=== PATIENT | female | born 2000 | race Caucasian/White ===

== ENCOUNTER 2022-06-13 22:31 | Emergency (ER) | payer BC, SELFPAY ==
[2022-06-13 22:32] VITALS: BP 136/81; PULSE 81; RESP 32; TEMP 36.6; O2SAT 100; BMI 22.9
--- NOTE | 2022-06-13 22:46 | EKG12_ITS ---
Test Reason : CP Blood Pressure : / mmHG Vent. Rate : 075 BPM Atrial Rate : 075 BPM P-R Int : 118 ms QRS Dur : 078 ms QT Int : 364 ms P-R-T Axes : 026 001 058 degrees QTc Int : 406 ms Normal sinus rhythm with sinus arrhythmia Minimal voltage criteria for LVH, may be normal variant ( R in aVL ) Borderline ECG Confirmed by DEBORAH ANDERSON, REA ([id number]), assignment editor OBINNA DIEHL ([id number]) on 06/15/2022 1:34:17 PM Referred By: PENNIE/NAKUL Confirmed By:REA CABRERA MD
[2022-06-13] MEDS: Mag Hydrox/Al Hydrox/Simeth 30 ML UDC PO (23:02)
[2022-06-13] MEDS: Ondansetron 4 MG/2 ML Vial IV (23:02)
[2022-06-13] MEDS: Ketorolac 30 MG/ML Syringe IV (23:05)
[2022-06-13] MEDS: 0.9% Normal Saline 1,000 ML 150 ML IV (23:06)
--- NOTE | 2022-06-13 23:11 | ED.VIS.CHEST ---
HPI History of Present Illness Chief Complaint: Chest Pain Informant: patient Narrative Narrative: Patient presents secondary to chest pain. She reports having intermittent episodes of this chest pain for quite some time. Roommate states this episodes been going on for about a week but got significantly worse about an hour and a half ago. She complains of sharp stabbing pain in the left upper chest. She has nausea. 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 They were in town for a local tennis match and presents here for evaluation. She states when she was in [place] most recently they told her she had a torn intercostal muscle that was irritating a nerve and this was the cause of her pain. They had recommended she have a nerve block. She has not been seen to have this performed. [facility] Medical History GERD (gastroesophageal reflux disease) Intercostal muscle tear Home Medications amitriptyline 10 mg tablet 20 mg PO QHS 06/13/22 [History Last Taken Unknown] ferrous sulfate 142 mg (45 mg iron) tablet,extended release (Slow Fe) 100 mg PO QHS 06/13/22 [History Last Taken Unknown] hydrocodone-acetaminophen 5-325mg 5mg-325mg 1 tab PO DAILY PRN Pain 06/13/22 [History Last Taken Unknown] mefenamic acid 250 mg capsule 500 mg PO TID PRN Menstrual Pain 06/13/22 [History Last Taken Unknown] metoclopramide HCl 10 mg tablet 10 mg PO Q6H PRN Nausea 06/13/22 [History Last Taken Unknown] rabeprazole 10 mg capsule,delayed release sprinkle 20 mg PO QHS 06/13/22 [History Last Taken Unknown] simethicone 180 mg capsule 360 mg PO DAILY 06/13/22 [History Last Taken Unknown] sucralfate 1 gram tablet 1 g PO TID 06/13/22 [History Last Taken Unknown] tapentadol 50 mg tablet 25 - 50 mg PO DAILY PRN Pain 06/13/22 [History Last Taken Unknown] tranexamic acid 500 mg tablet 1,000 mg PO 4X/DAY 06/13/22 [History Last Taken Unknown] Allergy/AdvReac Type Severity Reaction Status Date / Time No Known Allergies Allergy Verified 06/13/22 22:36 Social History Smoking Status: Never smoker ROS ROS ED Constitutional Constitutional ED: Denies chills or fever(s) Eyes Eyes: Denies change in vision or discharge from eye(s) ENT ENT ED: Denies discharge from eye(s), rhinorrhea or sore throat Cardiovascular Cardiovascular: Reports chest pain; Denies palpitations Respiratory/Chest Respiratory/Chest: Denies cough or dyspnea Gastrointestinal Gastrointestinal: Reports nausea; Denies abdominal pain, diarrhea or vomiting Genitourinary Genitourinary ED: Denies dysuria Musculoskeletal Musculoskeletal: Denies back pain or extremity pain Integumentary Denies Abrasions or rash Neurologic Neurologic: Denies headache(s) or weakness Psychiatric Psychiatric: Reports anxiety; Denies depression Allergic/Immunologic Allergic/Immunologic ED: Denies lip swelling or urticaria EXAM Physical Exam Const Vital Signs: 06/13/22 22:32 Temperature 98 F Temperature Source Temporal Pulse Rate 81 Respiratory Rate 32 H Blood Pressure 136/81 H Blood Pressure Mean 99 Pulse Ox 100 Oxygen Delivery Method Room Air Positive well nourished and well developed General Appearance ED: well developed HEENT Reports normocephalic and head/scalp atraumatic Eyes PERRL and EOMs intact bilaterally Neck supple Chest Wall inspection of chest normal and palpation of chest normal Resp normal respiratory effort and clear to auscultation bilaterally Cardio regular rate and regular rhythm GI soft to palpation Palpation: soft Extremity normal to inspection Neuro oriented x3 and no sensory deficits noted Sensorium / Orientation: alert Motor Exam: strength 5/5 throughout Psych Mood & Affect: anxious Skin no rashes or lesions noted Heart Score History: Slightly/Non-Suspicious ECG: Normal Age: </= 45 years Risk Factors: No Risk Factors Troponin: </= Normal Limit Score: 0 MDM MDM MDM Narrative Medical decision making narrative: Patient was given Toradol and Zofran for pain and nausea along with a dose of Protonix. GI cocktail was given. 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 EKG obtained to evaluate for cardiac ischemia or dysrhythmia. Chest x-ray obtained to evaluate cardiac silhouette and lung pathology. Lab work obtained to evaluate for electrolyte derangement, troponin value for cardiac ischemia, D-dimer to evaluate for pulmonary embolism. Lab Data Attestation: I reviewed the patient's lab results. Labs: Laboratory Results - last 24 hr 06/13/22 06/13/22 06/13/22 23:00 23:00 23:00 WBC 10.4 RBC 4.31 Hgb 13.2 Hct 40.3 MCV 93.5 MCH 30.6 MCHC 32.8 RDW Std Deviation 45.2 H RDW Coeff of Kirk 13.2 Plt Count 278 MPV 11.0 Immature Gran % (Auto) 0.300 Neut % (Auto) 58.8 Lymph % (Auto) 33.2 [place] % (Auto) 5.8 Eos % (Auto) 1.4 Baso % (Auto) 0.5 Absolute Neuts (auto) 6.1 Absolute Lymphs (auto) 3.44 Nucleated RBC % 0 D-Dimer Quant (PE/DVT) < 0.27 L Sodium 142 Potassium 3.7 Chloride 108 H Carbon Dioxide 26.0 Anion Gap 8 BUN 14 Creatinine 0.67 Estim Creat Clear Calc 125.39 Est GFR (MDRD) Af Amer 144 Est GFR (MDRD) Non-Af 119 BUN/Creatinine Ratio 20.9 H Glucose 97 Calcium 9.7 Troponin I High Sens 4 Serum , Qual 06/13/22 23:00 WBC RBC Hgb Hct MCV MCH MCHC RDW Std Deviation RDW Coeff of Kirk Plt Count MPV Immature Gran % (Auto) Neut % (Auto) Lymph % (Auto) [place] % (Auto) Eos % (Auto) Baso % (Auto) Absolute Neuts (auto) Absolute Lymphs (auto) Nucleated RBC % D-Dimer Quant (PE/DVT) Sodium Potassium Chloride Carbon Dioxide Anion Gap BUN Creatinine Estim Creat Clear Calc Est GFR (MDRD) Af Amer Est GFR (MDRD) Non-Af BUN/Creatinine Ratio Glucose Calcium Troponin I High Sens Serum , Qual NEGATIVE Radiography Chest X-Ray - ED: 1 View, Read by ED Physician, Normal, Heart, Lungs and Mediastinum EKG Initial EKG: Attestation: I personally reviewed and interpreted this EKG as follows: Interpretation: Sinus Rhythm (Sinus at 75 with no acute ischemia.) Treatment and Re-Evaluation Narrative: Repeat evaluation patient is resting comfortably and smiling. She states she feels significantly improved. EKG reveals no acute ischemia. Chest x-ray per my interpretation reveals no acute findings with normal cardiac silhouette and lungs. Lab work reveals no evidence of leukocytosis or anemia. Electrolytes are unremarkable. Troponin and D-dimer are both normal. At this time patient will be discharged. She has been worked up for this multiple times in the past and has home medications to take. Return instructions given. Discharge Plan Triage Chief Complaint: Chest Pain ED Provider: Marie Lanier Dx/Rx/DC Orders Clinical Impression: Atypical chest pain Instructions: ED Chest Pain, Noncardiac Prescriptions: No Action simethicone 180 mg Capsule 360 mg PO DAILY hydrocodone-acetaminophen [[place]] 5-325 mg Tablet 1 tab PO DAILY PRN (Reason: Pain) sucralfate 1 gram tablet 1 g PO TID Label Comments: TAKE 1 TABLET BY MOUTH THREE TIMES DAILY mefenamic acid 250 mg Capsule 500 mg PO TID PRN (Reason: Menstrual Pain) Rx Instructions: FOR THE FIRST FEW DAYS F CYCLE amitriptyline 10 mg Tablet 20 mg PO QHS metoclopramide HCl 10 mg Tablet 10 mg PO Q6H PRN (Reason: Nausea) tranexamic acid 500 mg Tablet 1,000 mg PO 4X/DAY Rx Instructions: AT START OF MENSTRUAL CYCLE Slow Fe 142 mg (45 mg iron) Tablet Extended Release 100 mg PO QHS tapentadol 50 mg Tablet 25 - 50 mg PO DAILY PRN (Reason: Pain) rabeprazole 10 mg Capsule, Delayed Rel Sprinkle 20 mg PO QHS Primary Care Provider: Care Physician,No Primary Referrals: NOT,DEFINED [Non-Staff] - Disposition Disposition: Home, Self Care
--- NOTE | 2022-06-13 23:20 | RAD_ITS ---
EXAM: XR CHEST, 1 VIEW CLINICAL INDICATION: cp TECHNIQUE: Frontal view of the chest. This report was created using [employer] report generation technology. COMPARISON: None. FINDINGS: LUNGS AND PLEURAL SPACES: Unremarkable. No consolidation or edema. Lungs are not hyperinflated. No pneumothorax. No effusion. HEART: Unremarkable. Cardiac silhouette not enlarged. MEDIASTINUM: Central airways and mediastinal contour are unremarkable. BONES/JOINTS: Unremarkable. SOFT TISSUES: Nipple shadows are present. RAD/Chest 1 View (Portable) IMPRESSION: No radiographic evidence of acute cardiopulmonary disease. Electronically Signed: Brendan Palomo MD at 0:04 EST ,
[2022-06-13 23:24] LABS: Absolute Lymphocyte Count 3.44 X10^3/uL (0.83-4.51); Absolute Neutrophil Count 6.1 X10^3/uL (2.0-7.7); Basophil# 0.05 X10^3/uL; Basophil% 0.5 % (0-1); Eosinophil# 0.14 X10^3/uL; Eosinophils% 1.4 % (0-5); Hematocrit 40.3 % (37-47); Hemoglobin 13.2 g/dL (12.0-15.0); Lymphocyte # 3.44 X10^3/ul (0.83-4.51); Lymphocyte % 33.2 % (19-41); Mean Corp Hgb Conc 32.8 g/dL (32-36); Mean Corpuscular Hgb 30.6 pg (27.0-32.0); Mean Corpuscular Volume 93.5 fL (81-99); Monocyte% 5.8 % (0-10); NRBC Flagged by Analyzer 0 % (0-5); Neutrophil # 6.09 X10^3/uL (2.7-7.7); Neutrophil % 58.8 % (47-70); Platelet Count 278 K/mm3 (150-450); RBC Distribution Width CV 13.2 % (11.6-14.6); RBC Distribution Width SD 45.2 fl (35.1-43.9); Red Blood Count 4.31 M/mm3 (4.2-5.4); White Blood Count 10.4 K/mm3 (4.4-11.0)
[2022-06-13 23:30] LABS: D-Dimer Quantitative (DVT/PE) < 0.27 FEU/ug/m (0.27-0.49)
[2022-06-13 23:34] LABS: Internal QC Validated? YES +Cl - CLEAR BKGD; Pregnancy, Serum, hCG Quali. NEGATIVE Negative
[2022-06-13 23:43] LABS: Anion Gap 8 (5-15); BUN 14 mg/dL (7-18); BUN/Creat Ratio 20.9 RATIO (10-20); Calcium,Total 9.7 mg/dL (8.5-10.1); Chloride 108 mmol/L (98-107); Creatinine, Serum 0.67 mg/dL (0.55-1.02); EST Glomerular Filtration Rate 119 mL/min (>60); Est Glom Filt Rate - Afr Amer 144 mL/min (>60); Estimated Creatinine Clearance 125.39 ml/min; Glucose 97 mg/dL (74-106); Potassium 3.7 mmol/L (3.5-5.1); Sodium Level 142 mmol/L (136-145); Troponin-I HS 4 pg/mL (3.0-54.0)
[2022-06-14 00:06] VITALS: BP 122/60; PULSE 77; RESP 16; O2SAT 98
== END 2022-06-14 00:23 | disposition home or self-care (01) ==
PROVIDERS: Emergency Provider Emergency Medicine; Visit Provider Emergency Medicine
DX: R07.89 Other chest pain (principal); R11.0 Nausea; Z79.899 Other long term (current) drug therapy; K21.9 Gastro-esophageal reflux disease without esophagitis
CPT/HCPCS: 71045; 80048; 84484; 84703; 85025; 85379; 93005; 96365; 96375; 99284; J7030; A4216; J2405